=== PATIENT | female | born 1975 | race Hispanic/Latino ===

== ENCOUNTER 2023-04-08 05:47 | Emergency (ER) | payer SELFPAY ==
[2023-04-08] MEDS ORDERED: Ketorolac Tromethamine 30 MG/ML VIAL ONE (06:12)
== END 2023-04-08 07:20 | disposition home or self-care (01) ==
LOC: NAV ERS 05:47
DX: M94.0 Chondrocostal junction syndrome [Tietze] (principal)
CPT/HCPCS: 93005; 96372; J1885

== ENCOUNTER 2024-07-11 17:50 | Emergency (ER) | payer SELFPAY ==
[2024-07-11] MEDS ORDERED: Cephalexin 250 MG CAP ONE (18:11)
[2024-07-11] MEDS ORDERED: Ibuprofen 800 MG TAB ONE (18:11)
== END 2024-07-11 18:26 | disposition home or self-care (01) ==
LOC: NAV ERS 17:50
DX: G89.18 Other acute postprocedural pain (principal)
CPT/HCPCS: 99283

== ENCOUNTER 2024-08-28 17:22 | Emergency (ER) | payer SELFPAY | END 2024-08-28 18:37 | disposition home or self-care (01) | LOC: NAV ERS 17:22 | DX: G89.29 Other chronic pain (principal); N64.4 Mastodynia | CPT/HCPCS: 99283 ==

== ENCOUNTER 2024-11-16 23:24 | Emergency (ER) | payer SELFPAY ==
[2024-11-16] MEDS ORDERED: Ketorolac Tromethamine 30 MG (1 mL) VIAL ONE (23:36)
[2024-11-16] MEDS ORDERED: Sodium Chloride 0.9% 1,000 ML ONE (23:37)
[2024-11-16] MEDS ORDERED: Ondansetron PF 4 MG/2 ML Vial ONE (23:37)
[2024-11-17] MEDS ORDERED: Sodium Chloride 0.9% 1,000 ML ONE (00:11)
[2024-11-17] MEDS ORDERED: methylPREDNISolone Sod Succ/PF 125 MG/2 ML VIAL ONE (00:11)
[2024-11-17] MEDS ORDERED: diphenhydrAMINE 50 MG/ML VIAL ONE (00:54)
== END 2024-11-17 02:24 | disposition home or self-care (01) ==
LOC: NAV ERS 23:24
DX: R51.9 Headache, unspecified (principal)
CPT/HCPCS: 70450; 96361; 96374; 96375; J1200; J1885; J2405; J2919; J7030

== ENCOUNTER 2025-08-04 21:13 | Emergency (ER) | payer SELFPAY ==
[2025-08-04 21:41] LABS: Glucose, Urine (Dipstick) Negative (Negative); Leukocyte Small (Negative); Protein, Urine (Dipstick) Negative (Neg-Trace); Specific Gravity, Urine 1.020 (1.005-1.030)
[2025-08-04 21:47] LABS: CAUTI Indications for Culture Pelvic or flank pain
[2025-08-04 21:48] LABS: Bacteria/HPF Rare-Few HPF (None Seen); Yeast-Budding 1+ HPF (None Seen)
[2025-08-04 21:50] LABS: Urine Culture Reflex No No
[2025-08-04] MEDS ORDERED: Ondansetron PF 4 MG/2 ML Vial ONE (21:54)
[2025-08-04] MEDS ORDERED: Ketorolac Tromethamine 30 MG (1 mL) VIAL ONE (21:54)
[2025-08-04 22:01] LABS: #Basophils 0.0 thou/uL (0.0-0.2); #Eosinophils 0.3 thou/uL (0.0-0.7); #Lymphocytes 2.6 thou/uL (1.20-3.40); #Monocytes 0.2 thou/uL (0.11-0.59); #Neutrophils 2.9 thou/uL (1.40-6.50); %Basophils 0.7 % (0.0-1.0); %Eosinophils 5.4 % (0.0-10.0); %Lymphocytes 43.3 % (21.0-51.0); %Monocytes 3.4 % (0.0-10.0); %Neutrophils 47.2 % (42.0-75.0); Hematocrit 37.2 % (36.0-47.0); Hemoglobin 13.1 g/dL (12.0-16.0); Mean Corpuscular Hemoglobin 32.1 pg (27.0-31.0); Mean Corpuscular Volume 91.0 fl (78.0-98.0); Platelet Count 265 10x3/uL (130-400); Red Blood Cell (RBC) Count 4.09 mill/uL (4.20-5.40); White Blood Cell (WBC) Count 6.1 10x3/uL (4.8-10.8)
[2025-08-04 22:11] LABS: ALT (SGPT) 17 U/L (Less than 34); AST (SGOT) 22 U/L (11-34); Albumin 4.4 g/dL (3.1-4.5); Alkaline Phosphatase 58 U/L (40-110); Anion Gap 13 mmol/L (10-20); BUN (Urea Nitrogen) 6 mg/dL (7.0-18.7); Bilirubin, Total 0.3 mg/dL (0.3-1.2); Calc. Creatinine Clearance 0 mL/min (70-130); Calcium 9.0 mg/dL (7.8-10.44); Carbon Dioxide 27 mmol/L (22-29); Chloride 103 mmol/L (98-107); Globulin 3.5 g/dL (2.4-3.5); Glucose 128 mg/dL (70-105); Potassium 3.7 mmol/L (3.5-5.1); Sodium 139 mmol/L (136-145)
== END 2025-08-04 23:45 | disposition home or self-care (01) ==
LOC: NAV ERS 21:13
DX: N20.0 Calculus of kidney (principal)
CPT/HCPCS: 74176; 80053; 81001; 85025; 96374; 96375; J1885; J2405; J7030